=== PATIENT | female | born 1985 | race Two or more races ===

== ENCOUNTER 2019-02-25 11:49 | Emergency (ER) | payer OTHER ==
[~2019-02-25] VITALS: Ht 167.6 cm; Wt 68.2 kg
[2019-02-25 11:59] VITALS: Ht 167.6 cm; Wt 68.2 kg
[2019-02-25 13:20] LABS: BASOPHIL % 0.6 % (0-2); RED CELL DISTRIBUTION WIDTH 13.7 % (11.5-14.5)
[2019-02-25 13:22] LABS: PLATELET COUNT 426 x10^3mcL (130-400)
[2019-02-25 13:34] LABS: CALCIUM 8.9 mg/dL (8.5-10.1); CARBON DIOXIDE 26.2 mmol/L (21-32); CHLORIDE SERUM 104 mmol/L (98-107); CREATININE SERUM 0.6 mg/dL (0.6-1.0); GFR1 > 60 mL/min; GLUCOSE SERUM 101 mg/dL (74-106); POTASSIUM SERUM 3.7 mmol/L (3.5-5.1); SODIUM SERUM 139 mmol/L (136-145)
[2019-02-25 13:38] LABS: ALKALINE PHOSPHATASE 87 U/L (46-116); ALT/SGPT 39 U/L (14-59); AST/SGOT 22 U/L (15-37); BILIRUBIN TOTAL 0.4 mg/dL (0.20-1.00); TOTAL PROTEIN, SERUM 7.9 g/dL (6.4-8.2)
[2019-02-25 13:40] LABS: ALBUMIN 3.2 g/dL (3.4-5.0)
[2019-02-25 13:49] LABS: UA SPECIFIC GRAVITY >=1.030 (1.005-1.035); microscopic required? YES; urine erythrocyte NEGATIVE (NEGATIVE)
[2019-02-25 14:30] VITALS: BP 126/56
== END 2019-02-25 14:30 | disposition home or self-care (01) ==
LOC: ED 11:49
PROVIDERS: Emergency Medicine
DX: B34.9 Viral infection, unspecified (principal); R07.89 Other chest pain; I10 Essential (primary) hypertension; E78.00 Pure hypercholesterolemia, unspecified; R42 Dizziness and giddiness
CPT/HCPCS: J1885; J2405; J7030; Q0092